=== PATIENT | female | born 1960 | race African-American/Black ===

== ENCOUNTER 2020-01-25 17:05 | Inpatient (IN) | payer OTHER ==
[~2020-01-25] VITALS: Ht 167.6 cm; Wt 131.5 kg
[~2020-01-25 17:05] MED LIST: CARAFATE 1 GM TA1 G1 PO; COUMADIN 5 MG TA5 M1; COUMADIN7.5 MG; NORCO 5-325 TA1 EACH PO; OXYCODONE HCL5 MG; PEPCID40 MG PO; TRAMADOL 50 MG50 MG PO; VITAMIN D10000 UNIT PO; VITAMIN D400 UNI1
[2020-01-25] MEDS ORDERED: CARBIDOPA-LEVO1 EAC9 PO (18:24)
[2020-01-25] MEDS ORDERED: VITAMIN D21250 MC1 PO (18:25)
[2020-01-25] MEDS ORDERED: NEURONTIN100 MG PO (18:26)
[2020-01-25] MEDS ORDERED: NORCO 5-325 TA1 EAC1 PO (18:26)
[2020-01-25] MEDS ORDERED: LIDOCAINE1 EAC1 TRANSDERM (18:28)
[2020-01-25] MEDS ORDERED: MECLIZINE HCL25 M1 PO (18:30)
[2020-01-25] MEDS ORDERED: MIRALAX119 GM PO (18:31)
[2020-01-25] MEDS ORDERED: PROTONIX40 M2 PO (18:31)
[2020-01-25] MEDS ORDERED: RESTASIS1 EACH OPHTHALMIC (18:32)
[2020-01-25] MEDS ORDERED: MYSOLINE50 MG PO (18:32)
[2020-01-25] MEDS ORDERED: SENNA PLUS TAB1 EACH PO (18:33)
[2020-01-25] MEDS ORDERED: XARELTO20 MG PO (18:33)
[2020-01-25] MEDS ORDERED: SUPER THERAVIT1 EACH PO (18:34)
--- NOTE | 2020-01-25 22:46 | NUR ---
CALLED [facility] APPROX 2241 REGARDING IF PT WOULD BE COMING TO REHAB [facility]. TALKED TO BRYCE RATLIFF RN AND SHE [facility]ED [facility] WERE [facility] ISSUES. EVY ADVISED PT WOULD BE ARRIVING TOMORROW 01/25. WILL NOTIFY DAY SHIFT PLANT PHYSIOLOGIST IN AM. EFREM RODRIGUEZ IS IN ROOM 5012 ON [address] AT [facility], PHONE # [phone].
[2020-01-26 12:08] VITALS: BP 134/77
--- NOTE | 2020-01-26 12:43 | NUR ---
1200 ADMITTED TO ROOM 516. PATIENT IS ALERT AND ORIENTED X4. PATIENT LEONARD'S, METAL CABINET FINISHER ARE EQUAL. LUNGS ARE CLEAR AND DEMINISHED ON RA. PATIENT IS UP WITH CANE OR WALKER WITH ASSIST OF 1 STAFF AND GAIT BELT. PATIENT STATES IS UP TO BSC FOR VOID KEYSHAWN COLORED URINE. FALL AND SAFETY PROTOCOLS IN PLACE. C/O PAIN IN HER LOWER EXTREMITIES. PT/OT/ST EVALS TO BE DONE LATER TODAY AFTER TEAM MEETING. PATIENT HAS +1 L.E. EDEMA. WILL CONTINUE TO MONITER.
--- NOTE | 2020-01-26 13:15 | NUR ---
pt new to acute rehab, pt from [facility]. cont with rehab eval and re team.
[2020-01-26 16:31] LABS: HEMATOCRIT 41.4 % (37.0-47.0); HEMOGLOBIN 13.6 gm/dL (12.0-15.0); MCHC 32.9 g/dL (28.0-37.0); MCV 82.1 fL (80.0-100.0); RBC 5.04 mil/uL (4.20-5.00); RDW 14.6 % (10.5-14.5); WBC 6.9 thou/uL (4.0-11.0)
[2020-01-26 16:41] LABS: CALCIUM 9.4 mg/dL (8.5-10.1); CREATININE 1.1 mg/dL (0.6-1.0); POTASSIUM 4.5 mmol/L (3.5-5.1)
[2020-01-26 19:30] VITALS: BP 117/46
--- NOTE | 2020-01-27 04:42 | NUR ---
Assumed pt care at 1900. A/OX4, VSS. Up with assist of to [facility] [place], pt c/o left knee pain with movement medicated per EMAR with relief reported. Continent of B&B, voiding yellow urine. Refused miralax at HS. Tremors noted on UE. LSCTA,no cough noted. Fall precautions in place, calls approp for help. Resting quietly at this time w/o any distress noted, will continue to monitor pt.
[2020-01-27 06:48] LABS: HEMATOCRIT 38.5 % (37.0-47.0); HEMOGLOBIN 12.7 gm/dL (12.0-15.0); MCHC 32.9 g/dL (28.0-37.0); MCV 82.1 fL (80.0-100.0); RBC 4.69 mil/uL (4.20-5.00); RDW 14.3 % (10.5-14.5); WBC 6.3 thou/uL (4.0-11.0)
[2020-01-27 06:56] LABS: CALCIUM 9.2 mg/dL (8.5-10.1); CREATININE 0.9 mg/dL (0.6-1.0); POTASSIUM 4.6 mmol/L (3.5-5.1)
--- NOTE | 2020-01-27 08:01 | NUR ---
ASSUME PT CARE AT 0700. REPORTS SLEPT GOOD LAST NIGHT. C/O RIGHT SHOULDER AND BOTH KNEES PAIN 6/10, PT HAS DYLLAN, TREMORS IS GETTING BETTER. PRN HYDROCODONE GIVEN. PATIENT IS ALERT AND ORIENTED X4. ABLE TO VOICE HER NEEDS. REASSESSMENT PER CHART. CLINICAL PATHOLOGIST ARE EQUAL. LUNGS ARE CLEAR AND DIMINISHED ON RA. PATIENT IS UP WITH WALKER WITH ASSIST OF 1 STAFF AND GAIT BELT. PATIENT STATES IS UP TO [facility] FOR VOID KEYSHAWN COLORED URINE. PATIENT HAS +1 L.E. EDEMA. OFFERED SUPPORTIVE CARE. DISCUSSED ABOUT CARE PLAN. GOALS UP AND PARTICIPATES WITH THERAPY. MORNING MEDS GIVEN. LAST BM WAS 2DAYS AGO. COLACE AND MIRALAX GIVEN SCHEDULE WITH WARM APPLE JUICE. FALL AND SAFETY PROTOCOLS IN PLACE. PT USES CALL LIGHT APPROPRIATELY. PT IS UP WITH PHYSICAL THERAPIST AT THIS MOMENT. WILL CONTINUE TO MONITOR.
[2020-01-27 08:10] VITALS: BP 124/71
--- NOTE | 2020-01-27 11:04 | NUR ---
CONSULT [id number] COMPLETED BY THIS TIN DIPPER.
--- NOTE | 2020-01-27 14:02 | NUR ---
Nutrition: pt seen due to rehab admission orders. Admit to rehab with Parkinsons disease. BMI 45.8 extreme class 3 obesity. Pt reports 10# recent weight loss as she is working more toward a plant based diet with a health softball coach. Encouraged continued gradual weight loss. States typically constipated and hx of IBS, on bowel regimen. Discussed dietary interventions. Did have BM today. PO 100% of meals so far and understands how to make menu modifications. Place as low nutrition risk.
[2020-01-27 21:45] VITALS: BP 120/59
--- NOTE | 2020-01-28 00:57 | NUR ---
Assumed care of patient this pm shift. Patient in good spirits. Patient states that she has tremors. Patient calm and cooperative. Patient takes medications whole with fluids. Patient has a bedside commode. Patient ambulates to commode with minimal assistance. Patient states that her knees hurt often as well as her neck. Patients assessment shows clear breath sounds, active bowel sounds, and s1 s2 heard with auscultation. Patient requested diclofenac gel and expressed relief after rn applied gel. Patient states that her pain was an 8 in her neck and pain medication was given. We will continue to monitor per hospital protocol.
[2020-01-28 08:00] VITALS: BP 106/68
--- NOTE | 2020-01-28 10:10 | NUR ---
ASSUMED CARE AT 0700. PATIENT IS ALERT AND ORIENTED X4. PATIENT LEONARD'S, CUFF STITCHER ARE EQUAL. LUNGS ARE CLEAR. ABD IS SOFT WITH BSX4. PATIENT CONTINUES TO HAVE NECK PAIN AND KNEE PAIN. VOLTARIN GEL APPLIED PER REQUEST. UP IN THE CHAIR FOR MEALS. UP TO THE BSC WITH SBA WITH GAIT BELT TO BSC TO VOID KEYSHAWN COLORED URINE. FALL AND SAFETY PROTOCOLS IN PLACE. PT C/O PAIN IN HER KNEES. PATIENT WAS MEDICATED WITH PRN PAIN MED BY THE NOC NURSE. CONTINUES TO PROGRESS TOWARDS D/C GOALS. WILL CONTINUE TO MONITER.
[2020-01-28 19:23] VITALS: BP 137/64
--- NOTE | 2020-01-29 01:08 | NUR ---
PT ALERT AND ORIENTED X 4. TRANSFERS TO BSC WITH ASSIST X 1 WITHOUT DIFFICULTY. C/O PAIN IN LEFT LEG. HYDROCODONE GIVEN AT HS. PT AWAKE MUCH OF NIGHT TALKING ON HER CELL PHONE. BED ALARM ON FOR SAFETY. PT CHECKED ON HOURLY ROUNDS.
[2020-01-29 08:00] VITALS: BP 127/74
--- NOTE | 2020-01-29 12:52 | NUR ---
ASSUMED CARE AT 0700. REPORTS SLEPT GOOD LAST NIGHT.PATIENT IS ALERT AND ORIENTED X4. ABLE TO VOICE HER NEEDS. REASESSMENT PER CHART.PRESS OPERATOR AUTOMATIC ARE EQUAL. LUNGS ARE CLEAR. ABD IS SOFT WITH BSX4. PATIENT CONTINUES TO HAVE NECK PAIN AND KNEE PAIN. VOLTARIN GEL APPLIED PER REQUEST. PRN HYDROCODONE GIVEN. UP IN THE CHAIR FOR MEALS. UP TO THE BSC WITH SBA WITH GAIT BELT TO BATHROON TO VOID KEYSHAWN COLORED URINE. FALL AND SAFETY PROTOCOLS IN PLACE. PT C/O PAIN IN HER KNEES. HAS ORDER FOR BRACE ORTHO FOR KNEES. PT WILL NOT HAVE MRI TODAY. DR. MORENO PLAN FOR CORTICOSONE INJECTION ON HER NECK, TALKS WITH DEANNA TO HOLD ARUNA. CONTINUES TO PROGRESS TOWARDS D/C GOALS. WILL CONTINUE TO MONITOR.
[2020-01-29 20:33] VITALS: BP 118/68
--- NOTE | 2020-01-30 02:55 | NUR ---
PATIENT ALERT AND ORIENTED X4. MEDICATED FOR PAIN X1 AT TIME OF NOTE. ADMINISTERED TOPICAL CREAM TO NECK AND RIGHT SHOULDER FOR PAIN AND DISCOMFORT. C/O DIZZINESS WHEN SITTING UP AND LAYING DOWN IN BED. MONITORING BP. NO C/O NAUSEA. RESTING QUIETLY.
[2020-01-30 08:10] VITALS: BP 107/67
--- NOTE | 2020-01-30 10:03 | NUR ---
ASSUMED CARE AT 0700. REPORTS SLEPT GOOD LAST NIGHT UNTIL FIRE ALARM WENT OFF THIS AM.PATIENT IS ALERT AND ORIENTED X4. ABLE TO VOICE HER NEEDS. REASESSMENT PER CHART.TITLE I DIRECTOR ARE EQUAL. LUNGS ARE CLEAR. ABD IS SOFT WITH BSX4. HAS SMALL BM THIS AM. OT HELPED PT WITH SHOWER THIS AM. PATIENT CONTINUES TO HAVE RIGHT SHOULDER PAIN. LIDOCAIN PATCH APPLIED. AND KNEE PAIN. VOLTARIN GEL APPLIED PER REQUEST. PRN HYDROCODONE GIVEN EALIER THIS AM. PAIN DOWN TO 3/10 NOW. BRACE ON LEFT KNEE APPLIED. UP IN THE CHAIR FOR BREAKFAST. ATE WELL 100%. GOAL IS UP TO THE BATHROOM WITH SBA WITH GAIT BELT TO BATHROON TO VOID. HAS KEYSHAWN COLORED URINE. OFFERED SUPPORTIVE CARE. ENCOURAGE PT TO VOICE HER NEEDS. PT C/O DIZZINESS WHEN SHE GETS UP. OFFERED MECLIZINE PRN. WILL CONTINUE TO [facility]. B/P 107/67, ENCOURAGED PT TO DRINK MORE WATER.FALL AND SAFETY PROTOCOLS IN PLACE. CONTINUES TO PROGRESS TOWARDS D/C GOALS. PT IS IN GOOD SPIRIT. UP IN RECLINER NOW. CONTACT WITH FAMILY THROUGH CELL PHONE.WILL CONTINUE TO MONITOR.
[2020-01-30 20:39] VITALS: BP 146/69
--- NOTE | 2020-01-31 04:47 | NUR ---
ASSESSMENT: PT REMAIN ALERT AND ORIENT TIMES FOUR. UP WITH GB, WALKER AND SBA TO BR TIMES TWO. NO BM THIS SHIFT. C/O RIGHT SHOULDER PAIN, HYDROCODONE EFFECTIVE FOR SHORT WHILE. DID HAVE A BM EARLIER DURING DAY SHIFT. GOOD PROGRESS TOWARDS DC GOALS WILL CONTINUE TO MONITOR.
[2020-01-31 08:50] VITALS: BP 124/75
--- NOTE | 2020-01-31 17:30 | NUR ---
ASSUMED CARE OF PT AT 0700. PT IS A&OX4 AND VITAL SIGNS ARE STABLE. PT REPORTS PAIN TO RIGHT SHOULDER AND BILATERAL KNEES, MANAGED WITH LIDOCAINE PATCH TO SHOULDER AND DICLOFENAC OINTMENT TO LE. PT UP WITH NURSING STAFF AND PARTICIPATED IN ADL'S. HR REGULAR, LUNG SOUNDS CLEAR, AND BOWEL SOUNDS ACTIVE. PT CALLED FAMILY THIS AFTERNOON AND DENIES ANY QUESTIONS OR CONCERNS ABOUT CARE AT THIS TIME. FALL PRECAUTIONS IN PLACE AND NURSING WILL CONTINUE TO MONITOR.
[2020-01-31 20:25] VITALS: BP 143/74
--- NOTE | 2020-02-01 00:19 | NUR ---
PT ALERT AND ORIENTED X 4. UP TO BSC WITH ASSIST X 1. C/O PAIN IN RIGHT SHOULDER. VOLTAREN GEL AND ICE APPLIED AT HS. NO FURTHER C/O VOICED. BED ALARM ON FOR SAFETY. PT APPEARS TO BE SLEEPING ON HOURLY ROUNDS.
[2020-02-01 06:45] VITALS: BP 123/72
--- NOTE | 2020-02-01 14:32 | NUR ---
cm notified by physical therapy that pt is requesting a fww and will possible dc home this week. will need rx [place] for any dme needs for home. will cont following as needed for dc needs.
--- NOTE | 2020-02-01 18:41 | HC ---
[facility] [place] [address] CONSULTATION Name: KATIE RODRIGUEZ Room #: 516-1 ADM IN M.R.#: [id number] Admission: 01/26/20 Attend Phys: Pieter Rankin MD Discharge: Date of : 58 Report #: [id number] THIS REPORT FOR: cc: DL - No family physician/PCP DL - No family physician/PCP Junior Vega MD ~ CC: Pieter LIZAMA physician/PCP DATE OF SERVICE: 01/26/2020 HISTORY OF PRESENT ILLNESS: This is a 59-year-old female patient who was evaluated by me for Parkinson disease. This patient gives a pretty involved history. She indicates that she usually follows up with Dr. Matos at [facility]. She was having some symptoms in the right upper and right lower extremities and they did an extensive workup including MRIs of the brain and that was unremarkable. I do not have any of that workup available. She said she went to [facility]. The symptoms were some in the shoulder area and there were some symptoms on the right side. She had an MRI of the cervical spine there which demonstrated spinal stenosis. Some time along the line, she was also diagnosed with Parkinson disease because of her tremor. She was started on Sinemet and she says her tremor is reasonably controlled. She came here for rehabilitation. REVIEW OF SYSTEMS: Indicate patient has been diagnosed with cervical stenosis as well as Parkinson disease. I do not have any of the records, but admitting hospitalist has indicated that she has a small aneurysm on the basis of CT angiogram this patient had. She had an MRI of the cervical spine, lumbar spine and the brain that demonstrated only mild changes. A 14-point review of system was carried out and this was a relevant 14-point review of system. PAST MEDICAL HISTORY: Positive for Parkinson disease based on her tremor. She has a history of cervical spinal stenosis, but from the description of the findings in the chart, it is not very prominent. Past medical history is positive for possible Parkinson disease. FAMILY HISTORY: Noncontributory. PHYSICAL EXAMINATION: The patient's examination indicates she is alert, responsive, able to follow simple and complex command. Cranial nerve examinations appear unremarkable. I do not see much tremor on today's examination. Neuromuscular examination also appears symmetrical. There is no meningeal sign. There is no carotid bruit. I could not look at the fundus. She is an obese individual who does not have any dysmorphic features of eyes, ears and face. No meningeal sign. Cardiac and respiratory examinations [place] [address] CONSULTATION Name: KATIE RODRIGUEZ Room #: 516-1 ADM IN .R.#: [id number] Admission: 01/26/20 Attend Phys: Pieter Rankin MD Discharge: Date of : 58 Report #: [id number] IMPRESSION: I do not see much sign of Parkinson disease on today's examination, but at the same time this patient is on medication and that makes it difficult to tell how much underlying Parkinson disease this patient has. I will suggest that the patient goes back to her own neurologist after discharge or a movement disorder specialist as an outpatient because they know her well. They have the workup and the patient is stable. If any problem, which need to be addressed emergently arises, please let us know and we will be happy to follow up. Thank you very much for this referral. <ELECTRONICALLY SIGNED> By: Juniro Vega MD 02/01/20 [id number] [id number] Junior Vega MD /nt
[2020-02-01 19:46] VITALS: BP 135/75
--- NOTE | 2020-02-01 19:50 | NUR ---
ASSUMED CARE OF PT AT 0700. PT IS A&OX4 AND VITAL SIGNS ARE STABLE. PT REPORTS PAIN TO BILATERAL KNEES AND RIGHT SHOULDER. ORDER FOR HYDROCODONE OBTAINED, PT REPORTS BETTER PAIN RELEF. LIDOCAINE PATCH AND VOLTEREN GEL APPLIED TO AREA WELL HEATING PAD. PT PARTICIPATED IN SCHEDULED THERAPIES. FALL PRECATIONS IN PLACE AND NURSING WILL CONTINUE TO MONITOR.
--- NOTE | 2020-02-02 02:36 | NUR ---
PT ASSESSMENT COMPLETED AND VSS. MEDS GIVEN ORDERED AND WELL TOLERATED. FALL PRECAUTIONS IN PLACE. UP TO THE BATHROOM WITH ASST/GAIT/WALKER. STEADY. PT STATES THAT SHE HOPES SHE WILL BE ABLE TO GO HOME ON SATURDAY AND THAT SHE FEELS READY. R SHOULDER PAIN CONTINUES. VOLTARIN GEL HELPFUL. HEATING PAD HELPFUL. HYDROCODONE WORKING WELL. PT WAS CRYING ONE TIME DURING THE NIGHT BECAUSE OF R SHOULDER PAIN. PRN PAIN MEDICATION WORKING WELL AT THIS TIME. PT DENIES NEEDS. SLEEPING WELL. WILL CONTINUE TO MONITOR FREQUENTLY.
[2020-02-02 08:10] VITALS: BP 126/77
--- NOTE | 2020-02-02 11:33 | NUR ---
rx for fww, [place]. hh list choice for nursing only provided to pt by bedside staff. cm placed vendor form on pt chart.
--- NOTE | 2020-02-02 19:12 | NUR ---
ASSUMED CARE OF PT AT 0700. PT IS A&OX4 AND VITAL SIGNS ARE STABLE. PT REPORTS PAIN TO RIGHT SHOULDER MANAGED WITH PO MEDICATIONS THAT WERE INCREASED THIS SHIFT, ADDED MUSCLE RELAXER, LIDOCAINE PATCH, AND VOLTEREN GEL. PT PARTICIPATED IN SCHEDULED THERAPIES. FALL PRECAUTIONS IN PLACE AND NURSING WILL CONTINUE TO MONITOR.
[2020-02-02 19:40] VITALS: BP 105/71
--- NOTE | 2020-02-03 01:26 | NUR ---
PT ALERT AND ORIENTED X 4. AMB TO BR WITH WALKER AND ASSIST X 1. C/O PAIN IN RIGHT NECK. HYDROCODONE GIVEN AT HS. AK PAD TO RIGHT SHOULDER/NECK AREA. BED ALARM ON FOR SAFETY. PT APPEARS TO BE SLEEPING ON HOURLY ROUNDS.
[2020-02-03 08:00] VITALS: BP 141/91
--- NOTE | 2020-02-03 13:58 | NUR ---
Nutrition: Pt admitted with Parkinsons disease and seen per followup. Pt voices no questions/concerns for RD. Continues to eat well, 75-100% of meals on heart healthy diet. Last BM doc on 01/30, bowel regimen ordered. Prior weight loss reported as pt working with health success coach and eating more plant based foods. Planned D/C 02/04. Low nutrition risk.
--- NOTE | 2020-02-03 15:53 | NUR ---
ASSUMED CARE OF PT AT 0700. REPORTS SLEPT FAIR LAST NIGHT. C/O MUCH PAIN ON NECK. PRN HYDROCODONE GIVEN BY NIGHT RN. PT IS A&OX4 ABLE TO VOICE HER NEEDS. VITAL SIGNS ARE STABLE ON RA.PT REPORTS PAIN TO RIGHT SHOULDER MANAGED WITH PO MEDICATIONS THAT WERE INCREASED THIS SHIFT, MUSCLE RELAXER, LIDOCAINE PATCH, AND VOLTEREN GEL. PRN GIVEN PRIOR THERAPY. PT PARTICIPATED IN SCHEDULED THERAPIES. REASSESSMENT PER CHART. LAST BM WAS 3 DAYS AGO. MIRALAX GIVEN WITH WARM APPLE JUICE. OFFEREED SUPPORTIVE CARE. REDNESS ON LEFT GROIN APPLIED NYSTATIN POWER, HEALED NOW. FALL PRECAUTIONS IN PLACE AND NURSING WILL CONTINUE TO MONITOR. WILL CONTINUE TO MONITOR.
--- NOTE | 2020-02-03 16:54 | NUR ---
FAXED REFERRAL TO [facility] SPOKE WITH [facility] IN INTAKE AND THEY RECEIVED REFERRAL AND WILL REVIEW. DP WILL F/U TOMORROW.
[2020-02-03 19:22] VITALS: BP 114/76
--- NOTE | 2020-02-04 01:27 | NUR ---
PT ASSESSMENT COMPLETED AND VSS. MEDS GIVEN ORDERED AND WELL TOLERATED. FALL PRECAUTIONS IN PLACE. MOD I IN ROOM. PT STEADY. PRN PAIN MEDICATION HELPFUL FOR R SHOULDER PAIN. PT SLEEPING WELL. DENIES NEEDS. WILL CONTINUE TO MONITOR FREQUENTLY.
[2020-02-04 06:03] LABS: ABSOLUTE NEUTROPHILS 5.6 thou/uL (1.4-8.2); BASOPHILS 0.2 % (0.0-2.0); EOSINOPHILS 0.5 % (0.0-3.0); HEMATOCRIT 33.3 % (37.0-47.0); MCH 26.9 pg (26.0-34.0); MCV 81.6 fL (80.0-100.0); MONOCYTES 4.8 % (1.0-8.0); PLATELET COUNT 263 thou/uL (150-400); POLYS 70.5 % (36.0-66.0); RBC 4.08 mil/uL (4.20-5.00); RDW 14.7 % (10.5-14.5)
[2020-02-04 06:35] LABS: CALCIUM 8.8 mg/dL (8.5-10.1); CREATININE 0.9 mg/dL (0.6-1.0); POTASSIUM 4.2 mmol/L (3.5-5.1)
[2020-02-04 07:51] VITALS: BP 149/69
--- NOTE | 2020-02-04 10:37 | NUR ---
ruiz spoke with abdulkadir [place], cm called to get auth for fww. abdulkadir passed on that pt was just issued a walker in 2018 from [facility] and will need to find out if it is broken and can get it fix, not going to give auth at this time"/ [place].
--- NOTE | 2020-02-04 11:39 | NUR ---
ASSUMED CARE AT 0700. PATIENT IS ALERT AND ORIENTED X4. PATIENT LEONARD'S, CABLE STRETCHER AND TESTER ARE EQUAL. LUNGS ARE CLEAR. ABD IS SOFT WITH BSX.4 PATIENT HAD BM TODAY. REFUSED LAXATIVES. PATIENT IS MOD/I IN ROOM WITH ROLLER WALKER. PATIENT CONTINUES TO HAVE RIGHT SHOULDER PAIN. UP IN THE CHAIR FOR MEALS. FALL AND SAFETY PROTOCOLS IN PLACE. C/O RIGHT SHOULDER PAIN. MEDICATED WITH PRN PAIN MED. CONTINUES TO PROGRESS TOWARDS DC GOALS. WILL CONTINUE TO MONITER.
--- NOTE | 2020-02-04 12:27 | NUR ---
SPOKE WITH [facility] IN INTAKE AT [facility] THEY CAN ACCEPT PT AT DISCHARGE FOR HH.
[2020-02-04 12:28] VITALS: BP 149/69
[2020-02-04 20:00] VITALS: BP 108/59
--- NOTE | 2020-02-05 01:17 | NUR ---
PT ALERT AND ORIENTED X 4. MODIFIED INDEPENDENT IN ROOM WITH WALKER. PT C/O PAIN IN RIGHT NECK AND KNEES. VOLTAREN GEL APPLIED. PT STATES THAT HELPS HER PAIN A LOT. HAS NOT REQUESTED PAIN MEDS SO FAR TONIGHT. PT APPEARS TO BE SLEEPING ON HOURLY ROUNDS.
[2020-02-05] MEDS ORDERED: NORCO 7.5-3251 EACH PO (08:29)
[2020-02-05] MEDS ORDERED: TYLENOL325 MG PO (08:39)
[2020-02-05] MEDS ORDERED: VOLTAREN GEL 1100 G2 TOP (08:39)
[2020-02-05] MEDS ORDERED: ZANAFLEX4 MG PO (08:39)
[2020-02-05] MEDS ORDERED: DEXAMETHASONE1 MG PO (08:39)
[2020-02-05] MEDS ORDERED: NYAMYC15 GM TOP (08:39)
[2020-02-05] MEDS ORDERED: NEURONTIN 300M300 M2 PO (08:39)
--- NOTE | 2020-02-05 10:42 | NUR ---
ASSUMED CARE AT 0700. PATIENT IS ALERT AND ORIENTED X4. PATIENT LEONARD'S, CITY ATTORNEY ARE EQUAL LUNGS ARE CLEAR. ABD IS SOFT WITH BSX4. PATIENT IS MOD/I IN ROOM UP IN BED FOR MEALS. FALL AND SAFETY PROTOCOLS IN PLACE. C/O RIGHT NECK PAIN PATIENT WAS MEDICATED WITH PRN PAIN MED. CONTINUES TO PROGRESS TOWARDS D/C GOALS. WILL CONTINUE TO MONITER.
[2020-02-05 11:10] VITALS: BP 149/69
--- NOTE | 2020-02-05 11:20 | NUR ---
PT DISCHARGING TODAY TO HOME WITH [facility] FAXED DC ORDERS/SUMMARY RECEIVED CONFIRMATION AND SPOKE WITH INTAKE THEY WILL NOTIFY PT TO SET UP VISITS.
--- NOTE | 2020-02-05 11:52 | NUR ---
ASSUMED CARE AT 0700. PATIENT IS ALERT AND ORIENTED X4. PATIENT LEONARD'S, OFFSET PLATE MAKER ARE EQUAL. LUNGS ARE CLEAR. ABD IS SOFT WITH BSX4. PATIENT IS MOD/I IN ROOM. FALL AND SAFETY PROTOCOLS IN PLACE. C/O PAIN IN HER RIGHT NECK. LIDOCAINE PATCH APPLIED. PRN PAIN MED GIVEN. PATIENT TO D/C TO HOME TODAY. MEDICAIDE TRANSPORT TO / BETWEEN [phone]. WILL CONTINUE TO MONITER.
--- NOTE | 2020-02-07 19:20 | HC ---
[facility] [place] [address] CONSULTATION Name: KATIE RODRIGUEZ Room #: 516-1 [facility] IN M.R.#: [id number] Admission: 01/26/20 Attend Phys: Pieter Rankin MD Discharge: 02/05/20 Date of : 58 Report #: [id number] THIS REPORT FOR: cc: DL Hankins family physician/PCP DL Hankins family physician/PCP Tonio Gonzales PhD ~ CC: Pieter LIZAMA physician/PCP DATE OF SERVICE: 01/30/2020 BEHAVIORAL STATUS EXAM. AGE: 59. ATTENDING PHYSICIAN: Pieter Rankin MD SUPERVISOR CHEMICAL: Tonio Gonzales, PhD CLINICAL PRESENTATION: The patient is a 59-year-old -German female recently diagnosed with Parkinson's disease at the [facility]. She carries multiple medical comorbidities and is status post IVC filter placement. [facility] a [facility]. Dizziness was noted and she was started on meclizine. The patient is also reported to have had a [id number] foraminal narrowing and moderate spinal canal stenosis. Her medical history also includes deep venous thrombosis and degenerative arthritis. Her diagnostic assessment on admission to the rehabilitation unit was Parkinson's disease; generalized weakness and debilitation; back pain; neck pain with radiculopathy; cervical stenosis; history of vertigo, on Antivert as needed; orthostatic hypotension; blood disorder with history of deep venous thrombosis; thyroid nodule; right middle cerebral artery aneurysm. A complete description of her medical condition and history along with medications can be found in her medical record. Neuropsychological consultation was requested to provide assistance in the assessment of cognitive and emotional status and to provide recommendations and services. The patient reports having been living independently by herself prior to this most recent admission. She has 2 children. 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 She is a high school graduate. The patient reports having discontinued driving about 6 months ago, though has been independent with the management of medication and finances. She reports having a healthcare aide that comes to her home 7 days a week. TECHNIQUES UTILIZED: Clinical interview, review of medical records, staff [facility] [address] [place] [address] CONSULTATION Name: KATIE RODRIGUEZ Room #: 516-1 [facility] IN [facility].#: [id number] Admission: 01/26/20 Attend Phys: Pieter Rankin MD Discharge: 02/05/20 Date of : 58 Report #: [id number] consultation and behavioral observation, mini mental status exam 2 standard version, clock drawing and verbal fluency assessment. EXAMINATION FINDINGS: The patient was alert and cooperative with the assessment. She accurately described the reason for her admission. There is no evidence of aphasia. Her thoughts are logical and goal oriented. She does not report having auditory or visual hallucinations. The patient indicates that her sleep is disturbed because of pain. Difficulty with memory is also reported. Her appetite is described as within normal limits. There is no report of anxiety or depression. Performance on the MMSE 2 brief version is in the moderate range of impairment with a raw score of 12/16 with is a T score of 26 and percentile rank of 1. She was 3/3 for initial registration, 5/5 for orientation to time, 4/[address] and 0/3 for immediate recall of 3 items after a brief time delay and distraction. MMSE 2 standard version was extremely low with a raw score at 22/30, T score at 28 and percentile rank of 1. She was 2/5 for serial sevens, 2/2 for naming, 1/1 for repetition, 3/3 for auditory comprehension. She can read and follow a single command and write a sentence. The patient was unable to accurately copy a simple geometric design. Clock drawing is generally within normal limits; however, visual spatial deficits are suggested. Brief letter fluency assessment was in the high average range with a T score of 58 and percentile rank of 79. Brief category fluency was in the average range with a T score of 54 and percentile rank of 66. The patient is presenting with deficits in immediate recall, sustained concentration and visual spatial construction. Verbal fluency is within normal limits. This type of impairment suggests subcortical deficits, which are likely consistent with parkinsonian related symptoms. DIAGNOSTIC IMPRESSION: Mild neurocognitive disorder, possibly due to Parkinson's disease, without behavior disorder. RECOMMENDATIONS: The patient will likely benefit from continued cognitive rehabilitation to assist in compensation for immediate recall, concentration and visual spatial construction. Increased assistance in the home will likely be necessary because of cognitive deficits. Thank you very much for allowing me to provide the consultation on this patient. <ELECTRONICALLY SIGNED> By: Tonio Gonzales, PhD 02/07/20 1920 [id number] 29 Tonio Gonzales, PhD /nt
--- NOTE | 2020-02-08 15:26 | H ---
[facility] [place] [address] [place] [address] HISTORY AND PHYSICAL Name: KATIE RODRIGUEZ Room #: 516-1 DIS IN M.R.#: [id number] Admission: 01/26/20 Attend Phys: Pieter Rankin MD Discharge: 02/05/20 Date of : 58 Report #: [id number] THIS REPORT FOR: cc: DL - Nhi family physician/PCP DL - No family physician/PCP Pieter aRnkin MD ~ CC: Pieter LIZAMA physician/PCP DATE OF SERVICE: 01/26/2020 HISTORY AND PHYSICAL AND POSTADMISSION PHYSICIAN EVALUATION HISTORY OF PRESENT ILLNESS: The patient is a 59-year-old -Danish female recently diagnosed with Parkinson's disease at [facility] with multiple medical comorbidities including multiple DVTs, status post IVC filter, bilateral lower extremities, history of chronic back pain, status post laminectomy, orthostatic hypotension, vertigo. She was hospitalized at [facility]. She has a prior history of chronic pain. She had some problems with dizziness and was started on meclizine while at [facility]. Orthostatic vitals were positive and she was given IV fluids. The orthostatic hypotension, resolved after fluid supplement. It was discussed with her that she is on Sinemet and primidone, which may cause dizziness. CT of the head did not show any acute abnormalities. CTA of the head and neck did not show any large vessel occlusion. 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 MRI of the brain was unremarkable. While at [facility], she complained of severe back pain with radiation down her right lower extremity. MRI of the lumbar spine did not show any significant stenosis. Ultrasound Doppler did not show any DVT. She also complained of right-sided neck pain with radiation into her right arm and right chest. MRI of the C-spine showed focally advanced moderate to severe right C6-C7 neural foraminal narrowing and moderate spinal stenosis. She was started on Neurontin and Delphos. She was noted to have an overall functional decline from her premorbid status and has been admitted for acute in-hospital inpatient rehabilitation. Recommendations from [facility] are for her to follow up with her primary care physician, Dr. Miroslava Valenzuela and to follow up with the spine clinic. She also will need a nonurgent ultrasound of the thyroid as an outpatient as she was noted to have a 3.9 cm thyroid nodule. PAST MEDICAL HISTORY: Parkinson's disease, spinal stenosis, vertigo, dizziness, orthostatic hypotension, blood disorder, history of deep venous thrombosis. Past history also includes a prior right total knee arthroplasty and left knee degenerative arthritis and meniscal problems. She notes that she is to have a left total knee replacement in the future. She has chronic pain involving both lower extremities. [address] [address] HISTORY AND PHYSICAL Name: KATIE RODRIGUEZ Room #: 516-1 DIS IN M.R.#: [id number] Admission: 01/26/20 Attend Phys: Pieter Rankin MD Discharge: 02/05/20 Date of : 58 Report #: [id number] MEDICATIONS: Please see the full medication listing. ALLERGIES: FLAGYL. SOCIAL HISTORY: The patient lives in an apartment, 2 steps, utilized a walker. She had an aide for 3-1/2 hours in the morning. There is a son that is involved and there is a grandson that is actually staying with her. HABITS: No history of drug or alcohol abuse. REVIEW OF SYSTEMS: No current complaints of chest pain, shortness of breath, abdominal discomfort. PHYSICAL EXAMINATION: GENERAL: An obese 59-year-old -Danish female, in obvious distress. She does have some evidence of masked facies. VITAL SIGNS: Temperature 36.8, pulse 63, respirations 20, blood pressure is 117/46. The patient is alert and oriented. HEENT: Appeared to be benign. Cranial nerves are grossly intact. CHEST: Sounded clear to auscultation. CARDIOVASCULAR: Regular rate and rhythm. ABDOMEN: Obese, bowel sounds positive, nontender. EXTREMITIES: There is a slight resting tremor in the left upper extremity. She has some mild evidence of cogwheeling in the left upper extremity and right upper extremity, elbows and wrists. In her lower extremities, she has the old right knee incision, which is well healed. No focal calf swelling. She complains of some pain with moving both lower extremities. She has some chronic degenerative arthritic changes of that left knee. Strength is probably a grade 3+/5. She has been mod assist with basic transfers and has ambulated 5 feet with a 4-wheeled walker with contact assistance. ASSESSMENT: A 59-year-old female with the following problem list: 1. Parkinson's disease. 2. Generalized weakness and debilitation. 3. Back pain, neck pain with radiculopathy, cervical stenosis. [facility] is wanting her to go to the spine clinic as an outpatient. 4. History of vertigo, on Antivert as needed. 5. Orthostatic hypotension. Continuing with CRISTIN raza. 6. Blood disorder with history of deep venous thrombosis. Continuing Xarelto. Internal Medicine is involved. 7. Thyroid nodule. Will need followup imaging and to follow up with primary care physician. 8. Right middle cerebral artery aneurysm. Recommendation for repeat CTA in 1 year. [facility] [address] HISTORY AND PHYSICAL Name: KATIE RODRIGUEZ Room #: 516-1 DIS IN M.R.#: [id number] Admission: 01/26/20 Attend Phys: Pieter Rankin MD Discharge: 02/05/20 Date of : 58 Report #: [id number] PLAN: The patient is admitted for acute in-hospital inpatient rehabilitation. From a postadmission physician evaluation perspective, there are no relevant changes since the preadmission screening. Please see the above review of prior and current medical and functional conditions and comorbidities. Please see the patient's previous and current functional status. As far as risk of complications, she does have multiple medical comorbidities as noted above. Initial plan of care involves the interdisciplinary acute inpatient rehabilitation program. Measurable functional goals would be for the patient to become modified independent with transfers, mobility, ADLs, so that she can hopefully return back to her prior living situation. Prognosis is reasonably good with estimated length of stay probably at least 7-14 days. Potential barriers would include the patient's multiple medical comorbidities and decreased functional status. The patient meets diagnostic criteria for an acute in-hospital inpatient rehabilitation stay. She meets the medical necessity criteria and we will have the energy sales consultant physicians continue to follow. She does have the tolerance for therapies and has appropriate discharge goals back to the home setting. <ELECTRONICALLY SIGNED> By: Pieter Rankin MD 02/08/20 1526 [id number] 09 Pieter Rankin MD /smith
--- NOTE | 2020-02-08 15:30 | PLAN ---
[facility] [place] [address] [place] [address] REHAB UNIT PLAN OF CARE Name: KATIE RODRIGUEZ Room #: 516-1 DIS IN M.R.#: [id number] Admission: 01/26/20 Attend Phys: Pieter Rankin MD Discharge: 02/05/20 Date of : 58 Report #: [id number] THIS REPORT FOR: //name// CC: Pieter Rankin [facility] physician/PCP DATE OF SERVICE: 01/29/2020 PROGRESS NOTE/OVERALL PLAN OF CARE SUBJECTIVE: The patient has been continuing in rehabilitation therapy. She had some frustration this morning with the fact that knee MRI was canceled, but appears to be understanding in this regard. She denied any constipation. Plan is to follow up with Ortho for an MRI of the knee. [employer]er has been consulted for possible left neoprene brace. The patient has been continuing to work in therapies with transfer standby assistance and gait standby assistance 15 feet with the four-wheeled walker. In occupational therapy, lower body dressing is min assist. ASSESSMENT: 1. Parkinson's disease. 2. Generalized weakness with debilitation. 3. Cervical radiculopathy. Appreciate Neurosurgery assistance. 4. Orthostatic hypotension. 5. Thyroid nodule. 6. Right middle cerebral artery aneurysm. 7. Blood disorder with history of deep venous thrombosis. 8. Left knee discomfort, which is a premorbid problem. PLAN: The overall plan of care is based on the preadmission screen, post-admission physician evaluation and information garnered from therapy assessments. 1. Estimated length of stay is probably at least 7-14 days. 2. Medical prognosis is reasonably good. 3. Anticipated interventions includes the interdisciplinary acute inpatient rehabilitation program. 4. Anticipated functional outcomes would be for the patient to become modified independent with transfers, mobility, ADLs, so she can hopefully return back to her home setting. I did do an e-mail to try to be in communication with her landlord regarding hopefully putting up a stair rail for her into her apartment. 5. Discharge destination would be back to her apartment. She does have 2 steps in. 6. Expected therapy by discipline includes PT and OT 1-1/2 hours per day each five days a week throughout the duration of the acute inpatient rehabilitation stay. [address] [address] REHAB UNIT PLAN OF CARE Name: KATIE RODRIGUEZ Room #: 516-1 [facility].#: [id number] Admission: 01/26/20 Attend Phys: Pieter Rankin MD Discharge: 02/05/20 Date of : 58 Report #: [id number] ADDENDUM: Agree with the progress note, examination, assessment and plan as documented. <ELECTRONICALLY SIGNED> By: Pieter Rankin MD 02/08/20 1530 [id number] Pieter Rankin MD /nt
== END 2020-02-05 13:45 | disposition home health service (06) | DRG 57 ==
PROVIDERS: Nurse Practitioner; ADMIT Physical Medicine & Rehabilitation
DX: G20 Parkinson's disease (principal); M48.02 Spinal stenosis, cervical region; R53.81 Other malaise; M54.12 Radiculopathy, cervical region; I95.1 Orthostatic hypotension; G89.29 Other chronic pain; M54.9 Dorsalgia, unspecified; M19.90 Unspecified osteoarthritis, unspecified site; Z66 Do not resuscitate; I67.1 Cerebral aneurysm, nonruptured; E04.1 Nontoxic single thyroid nodule; G31.84 Mild cognitive impairment of uncertain or unknown etiology; Z88.8 Allergy status to other drugs, medicaments and biological substances
CPT/HCPCS: 10112